=== PATIENT | male | born 1990 | race Caucasian/White ===

== ENCOUNTER 2024-02-13 20:54 | Emergency (ER) | payer OTHER, SELFPAY ==
[2024-02-13 21:01] VITALS: BP 158/108
--- NOTE | 2024-02-13 22:34 | ED.GENMED ---
History of Present Illness
<CARLOS EDUARDO Cortes - Last Filed: 02/14/24 05:37>
General
Chief Complaint: Musculo-Skeletal Complaint
Source: patient
Exam Limitations: none
Time Seen by Provider: 02/13/24 22:25
Nursing documentation reviewed up to this point in time: agreed with
Travel History
Have you had any contact with someone who has COVID-19?: No
Do you have any symptoms of coronavirus? Fever > 100 degrees, chills, cough, shortness of breath, sore throat, loss of taste or smell, muscle aches, or headache?: No
History of Present Illness
History of Present Illness:
patient is a 33 y/o male with PMH of asthma presenting for left sided rib pain after a fall on ice earlier today. Patient admits that he was playing ice hockey when he fell on his left side with arm in adduction. Patient admits he heard a 'crunch'
and has been in pain since. Patient admits that he has difficulty with any form of movement, breathing or speaking due to pain. Patient states he cannot fully breathe in due to pain. Patient admits to SOb of breath on inhalation. Patient denies
N/v/D/C, fever, or any bleeding. patient admits to drinking one beer earlier but denies any smoking. Patient has asthma for which he has a rescue albuterol inhaler for but cannot recall the last time he has needed it. Patient denies headstrike with
fall.
Past History
<CARLOS EDUARDO Cortes - Last Filed: 02/14/24 05:37>
Past History
ED Past Medical History: Asthma and Other
ED Past Surgical History: None
Social History
Tobacco: Smoker
Alcohol: Occasional
Drug: None
Personal: Single
Living: with family
Employment: Employed
Family History
Family History: Other (No significant)
Review of Systems
<CARLOS EDUARDO Cortes - Last Filed: 02/14/24 05:37>
Review of Systems
All Other Systems: Not applicable
Constitutional: Reports no symptoms
EENT: Reports no symptoms
Respiratory: Reports trouble breathing
Cardiac: Reports no symptoms
ABD/GI: Reports no symptoms
: Reports no symptoms
Musculoskeletal: Reports other (left rib pain )
Skin: Reports no symptoms
Neurological: Reports no symptoms
Endocrine: Reports no symptoms
Hematologic/Lymphatic: Reports no symptoms
Psychiatric: Reports no symptoms
Phy Exam
<CARLOS EDUARDO Cortes - Last Filed: 02/14/24 05:37>
Physical Exam
Physical Exam:
mild ecchymosis with tenderness over left ribs
Pulmonary Exam
Pulmonary Exam: lungs clear and other (chest tender to palpation in axilla and along left ribs )
Musculoskeletal Exam
Musculoskeletal Exam: full ROM and other (tenderness over left ribs )
Skin Exam
Skin Exam: other (ecchymosis on lateral chest wall over ribs )
Course
<CARLOS EDUARDO Cortes - Last Filed: 02/14/24 05:37>
Orders/Labs/Results
Orders:
Orders
02/13/24 21:04
Ribs, Left 3 View W/PA Chest CR [CR Ribs-left 3 Vw W/pa Chest] Urgent
Comment:
Reason For Exam: FALL IN ICE HOCKEY
02/13/24 22:35
Incentive Spirometry [Rx Incentive Spirometry] [RESP] Urgent
Frequency: q1h while awake
02/13/24 22:49
Ketorolac [Toradol] 30 mg IM NOW STA
Vital Signs
Initial and Last Documented VS:
Initial Vital Signs
Temp Pulse Resp BP Pulse Ox
99 F 106 28 158/108 98
02/13/24 21:01 02/13/24 21:01 02/13/24 21:01 02/13/24 21:01 02/13/24 21:01
Last Documented Vital Signs
Temp Pulse Resp BP Pulse Ox
99 F 106 28 158/108 98
02/13/24 21:01 02/13/24 21:01 02/13/24 21:01 02/13/24 21:01 02/13/24 21:01
<Chago Kowalski DO - Last Filed: 02/13/24 23:08>
Orders/Labs/Results
Orders:
Orders
02/13/24 21:04
Ribs, Left 3 View W/PA Chest CR [CR Ribs-left 3 Vw W/pa Chest] Urgent
Comment:
Reason For Exam: FALL IN ICE HOCKEY
02/13/24 22:35
Incentive Spirometry [Rx Incentive Spirometry] [RESP] Urgent
Frequency: q1h while awake
02/13/24 22:49
Ketorolac [Toradol] 30 mg IM NOW STA
Vital Signs
Initial and Last Documented VS:
Initial Vital Signs
Temp Pulse Resp BP Pulse Ox
99 F 106 28 158/108 98
02/13/24 21:01 02/13/24 21:01 02/13/24 21:01 02/13/24 21:01 02/13/24 21:01
Last Documented Vital Signs
Temp Pulse Resp BP Pulse Ox
99 F 106 28 158/108 98
02/13/24 21:01 02/13/24 21:01 02/13/24 21:01 02/13/24 21:01 02/13/24 21:01
<CARLOS EDUARDO Cortes - Last Filed: 02/14/24 05:37>
MDM/Problems Addressed
Differential Diagnosis Includes:
rib fracture
soft tissue swelling
pneumothorax
atelectasis
MDM/Problems Addressed:
left rib paina fter fall
Chronic conditions affecting care: Asthma
<CARLOS EDUARDO Cortes - Last Filed: 02/14/24 05:37>
*Critical Care Note
Total Time (30-74mins, 75-104mins- exclusive of procedures): Not Applicable
ED Attending Note
<CARLOS EDUARDO Cortes - Last Filed: 02/14/24 05:37>
-
Portions of this chart may have been created with voice recognition software.� Occasional wrong word or��sound alike� substitutions may have occurred due to the inherent limitations of voice recognition software.
<Chago Kowalski DO - Last Filed: 02/13/24 23:08>
ED Attending Note
Patient seen and examined by attending physician: Yes
I performed the substantive portion of visit, reviewed & personally made and approve the management plan that is documented in note by myself or SHIRA.: Yes
ED Attending Note:
33-year-old male that presents with left rib contusion. Patient playing ice hockey and fell earlier today. Denies head injury or loss of consciousness. Patient was concerned because he heard a crunch. Patient states that breathing exacerbates
his symptoms. He denies any other injury. Patient was seen in conjunction with the PA student. I have reviewed and agree with the history and treatment plan presented. On my independent physical exam, patient is awake, alert, and oriented x3,
lungs are clear to auscultation bilaterally without wheezes rales or rhonchi. He does have some faint ecchymosis on his left chest wall. Tenderness to palpation.
Chest x-ray report reviewed and negative. Plan is incentive spirometry and NSAIDs. Patient is allergic to oxycodone. He does not wish to try oxycodone though nausea and vomiting ordered side effects.
Discharge Plan
Departure
Patient Disposition: Home (Routine Discharge)
Date of Disposition: 02/13/24
Time of Disposition: 23:05
Patient with high blood pressure during this ER visit?: Yes
Discharge Problem:
Contusion of rib on left side
Instructions: How to Use an Incentive Spirometer, Bruised Rib (DC), BLOOD PRESSURE
Prescriptions:
New
diclofenac sodium 75 mg tablet,delayed release (DR/EC)
75 mg PO BID Qty: 10 0RF
No Action
cetirizine [Zyrtec] 10 MG tablet
10 mg PO Daily PRN (Reason: allergies)
prednisone 50 MG tablet
50 mg PO DAILY Qty: 5 0RF
albuterol sulfate [Proventil HFA] 90 MCG/PUFF HFA aerosol inhaler
2 puff inhalation Q4HPRN PRN (Reason: shortness of breath) Qty: 1 0RF
ondansetron 4 MG tablet,disintegrating
4 mg PO TIDPRN PRN (Reason: nausea/vomiting) Qty: 15 0RF
diphenoxylate-atropine 1 TABLET tablet
1 tab PO Q4HPRN PRN (Reason: diarrhea) Qty: 12 0RF
penicillin V potassium 500 mg tablet
500 mg PO QID Qty: 40 0RF
Referrals:
[facility] [Outside]
Bassam De La Torre MD [Family Provider] -
NONE,* [Active] -
Activity Restrictions/Additional Instructions:
It was a pleasure meeting you and taking part in your care. We hope for your continued healing and wellness.
Please read discharge instructions in their entirety. However, they are for general education and may not describe your exact diagnosis at discharge. Information on your ER visit and medical conditions were discussed with you along with appropriate
follow up information...
If indicated, please take your medications as instructed and indicated on discharge paperwork.
Please schedule a follow up appointment as directed. Call to schedule an appointment
Please return to the emergency department with ANY change in, persisting, or worsening of symptoms. If any of your symptoms do not improve, or persist, or become more severe within 6-12 hours, please return to the emergency department for further
care.
Please return to the emergency department if you develop a headache, neck pain/stiffness, fever greater than 100.4F, chest pain, shortness of breath, persistent nausea, vomiting, slurred speech, difficulty walking, numbness/tingling, weakness, signs
of infection or any other symptoms that are worrisome to you.
If you have any questions or concerns please do not hesitate to call the Hospital at or E-mail me directly at [email or web address]
Interventions
Interventions:
*Risk Screen - Suicide Last Done: 02/13/24 21:01
*General Assessment Last Done: 02/13/24 21:16
*Neglect/Abuse Screening Last Done: 02/13/24 21:01
ED- Fall Risk Assessment Last Done: 02/13/24 21:16
*ED COVID-19 Vaccine History Last Done: 02/13/24 21:16
*Nursing Disposition Last Done: 02/13/24 22:39
ED-Musculoskeletal Assessment Last Done: 02/13/24 21:16
Discharge Date and Time
Discharge Date/Time: 02/13/24 23:10
[2024-02-13] MEDS: TORADOL 30 MG IM (22:52)
== END 2024-02-13 23:10 | disposition home or self-care (01) ==
LOC: EMR 20:54
PROVIDERS: EMERGENCY PHYSICIAN Student in an Organized Health Care Education/Training Program; FAMILY PHYSICIAN Family Medicine
DX: S20.212A Contusion of left front wall of thorax, initial encounter (principal); W00.0XXA Fall on same level due to ice and snow, initial encounter; F17.200 Nicotine dependence, unspecified, uncomplicated; J45.909 Unspecified asthma, uncomplicated
CPT/HCPCS: 99283; 96372; 71101